=== PATIENT | male | born 1945 | race Caucasian/White ===

== ENCOUNTER → 2017-01-09 | Outpatient (CLI) | payer MEDICARE ==
--- NOTE | 2017-01-09 17:06 | KCIC ---
EXAM: Lumbar spine 5 views. HISTORY: Low back pain, bilateral sciatica. COMPARISON: None. FINDINGS: There is a minimal dextrocurvature. No fractures are identified. Degenerative disc disease is moderate to severe at L5-S1. 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 Atherosclerotic calcifications are noted. Stool throughout the colon is consistent with constipation. IMPRESSION: 1. Moderate to severe degenerative disc disease at L5-S1. 2. Correlate for constipation. Electronically signed by: Mee Paetl MD (01/09/2017 5:03 PM) [facility]
== END | disposition home or self-care (01) ==
LOC: KCIC 16:05
PROVIDERS: ATTEND Family Medicine
DX: M51.37 Other intervertebral disc degeneration, lumbosacral region (principal); M54.41 Lumbago with sciatica, right side; M54.42 Lumbago with sciatica, left side
CPT/HCPCS: 72110